=== PATIENT | female | born 1935 | race Caucasian/White ===

== ENCOUNTER 2022-10-22 18:10 | Inpatient (IN) | payer OTHER ==
[2022-10-22] MEDS ORDERED: SODIUM CHLORIDE 1,000 ML IV STA (18:53)
[2022-10-22 19:19] LABS: ALBUMIN 3.5 g/dl (3.4-5.0); BILIRUBIN,TOTAL 0.6 mg/dl (0.2-1); CALCIUM 8.4 mg/dl (8.5-10); CREATININE 0.7 mg/dl (0.55-1.3); POTASSIUM 3.8 mmol/L (3.5-5.1); TOT PROT 6.5 g/dl (6.4-8.2)
[2022-10-22 19:23] LABS: HEMATOCRIT 23.9 % (32.4-45.2); MCH 19.2 pg (25.7-33.7); MCHC 29.2 g/dl (32.0-36.0); MEAN CELL VOLUME 65.6 fl (80-96); MEAN PLT VOLUME 9.2 fl (7.5-11.1); PLATELET COUNT 422.3 10^3/uL (134-434); RBC 3.64 10^6/uL (3.60-5.2); RDW 19.7 % (11.6-15.6)
[2022-10-22 19:24] LABS: WHITE BLOOD COUNT 26.7 10^3/uL (4.0-10.8)
[2022-10-22 20:01] LABS: ANISOCYTOSIS 2+; MACROCYTOSIS 1+; OVALOCYTE 1+
[2022-10-22 20:04] LABS: HEMATOCRIT 21.2 % (32.4-45.2); MCHC 29.1 g/dl (32.0-36.0); MEAN CELL VOLUME 65.5 fl (80-96); MEAN PLT VOLUME 8.5 fl (7.5-11.1); PLATELET COUNT 358.3 10^3/uL (134-434); RBC 3.24 10^6/uL (3.60-5.2); RDW 19.7 % (11.6-15.6); WHITE BLOOD COUNT 24.8 10^3/uL (4.0-10.8)
[2022-10-22 20:06] LABS: PLATELET ESTIMATE ADEQUATE
[2022-10-22 20:10] LABS: HEMOGLOBIN 6.2 G/dL (10.7-15.3)
[2022-10-22 20:43] LABS: INR 1.44 (0.83-1.09); PROTHROMBIN TIME (PATIENT) 16.7 SEC (9.7-13.0)
[2022-10-22 22:30] LABS: EPITHELIAL CELLS FEW /hpf
[2022-10-22] MEDS ORDERED: cefTRIAXone SODIUM 1 GM VIAL ONE (23:19)
[2022-10-22] MEDS ORDERED: ACETAMINOPHEN 325 MG TABLET (FP) PO PRN (23:59)
[2022-10-22] MEDS ORDERED: DOCUSATE SODIUM 100 MG CAPSULE (FP) PO PRN (23:59)
[2022-10-23] MEDS: CHOLECALCIFEROL (VIT D3) 1,000 UNIT (25 MCG) TABLET PO SCH (09:07)
[2022-10-23 09:30] LABS: CALCIUM 8.3 mg/dl (8.5-10); CREATININE 0.6 mg/dl (0.55-1.3); MAGNESIUM 1.8 mg/dL (1.8-2.4); PHOSPHOROUS 2.5 mg/dl (2.5-4.9); POTASSIUM 3.9 mmol/L (3.5-5.1)
[2022-10-23] MEDS ORDERED: CITALOPRAM HYDROBROMIDE 20 MG TABLET PO SCH (10:00)
[2022-10-23 10:53] LABS: MCHC 27.4 g/dl (32.0-36.0); MEAN CELL VOLUME 62.5 fl (80-96); PLATELET COUNT 367 10^3/uL (134-434); RBC 3.35 M/mm3 (3.60-5.2); RDW 18.7 % (11.6-15.6); WHITE BLOOD COUNT 20.8 K/mm3 (4.0-10.0)
[2022-10-23 10:59] LABS: MCH 17.1 pg (25.7-33.7)
[2022-10-23] MEDS ORDERED: PANTOPRAZOLE SODIUM 40 MG VIAL IVPUSH SCH (11:30)
[2022-10-23] MEDS ORDERED: PIPERACILLIN/TAZOB 3.375 GM 3.375 GM in DEXTROSE 5%-WATER - 50 ML IVPB SCH (11:30)
[2022-10-23 11:46] LABS: ANISOCYTOSIS 2+; MACROCYTOSIS 0
[2022-10-23 11:48] LABS: HEMOGLOBIN 5.7 GM/dL (10.7-15.3)
[2022-10-23] MEDS: LACTATED RINGERS SOLUTION 1,000 ML/1,000 ML INFUS.BAG IV SCH (12:39)
[2022-10-23 17:57] LABS: HEMOGLOBIN 9.6 GM/dL (10.7-15.3); MCH 20.5 pg (25.7-33.7); MCHC 30.2 g/dl (32.0-36.0); MEAN CELL VOLUME 67.9 fl (80-96); MEAN PLT VOLUME 8.3 fl (7.5-11.1); PLATELET COUNT 365 10^3/uL (134-434); RBC 4.71 M/mm3 (3.60-5.2); RDW 22.2 % (11.6-15.6); WHITE BLOOD COUNT 21.9 K/mm3 (4.0-10.0)
[2022-10-23 18:21] LABS: IRON SERUM 298 ug/dL (50-175); TOTAL IRON BINDING CAPACITY 331 ug/dL (250-450)
[2022-10-23 18:57] LABS: ANISOCYTOSIS 3+; MACROCYTOSIS 0
[2022-10-23] MEDS: PIPERACILLIN/TAZOB 3.375 GM 3.375 GM in DEXTROSE 5%-WATER - 50 ML IVPB SCH (19:15)
[2022-10-23] MEDS ORDERED: CEFTRIAXONE 1 GM in DEXTROSE 5%-WATER - 50 ML IVPB SCH (22:00)
[2022-10-24] MEDS: PIPERACILLIN/TAZOB 3.375 GM 3.375 GM in DEXTROSE 5%-WATER - 50 ML IVPB SCH ×2 (01:02→09:32)
[2022-10-24 08:55] LABS: BASO % 0.4 % (0-2.0); EOS % 2.8 % (0-4.5); HEMATOCRIT 26.9 % (32.4-45.2); HEMOGLOBIN 8.2 GM/dL (10.7-15.3); LYMPH % 12.5 % (8-40); MCH 21.4 pg (25.7-33.7); MCHC 30.6 g/dl (32.0-36.0); MEAN CELL VOLUME 70.1 fl (80-96); MEAN PLT VOLUME 8.5 fl (7.5-11.1); MONO % 9.3 % (3.8-10.2); PLATELET COUNT 310 10^3/uL (134-434); RBC 3.84 M/mm3 (3.60-5.2); RDW 21.7 % (11.6-15.6); WHITE BLOOD COUNT 14.7 K/mm3 (4.0-10.0)
[2022-10-24] MEDS: PANTOPRAZOLE SODIUM 40 MG VIAL IVPUSH SCH (09:32)
[2022-10-24] MEDS: CHOLECALCIFEROL (VIT D3) 1,000 UNIT (25 MCG) TABLET PO SCH (09:32)
[2022-10-24 11:08] LABS: ALBUMIN 2.6 g/dl (3.4-5.0); BILIRUBIN,TOTAL 1.7 mg/dL (0.2-1); BLOOD UREA NITROGEN 13.7 mg/dL (7-18); CREATININE 0.8 mg/dL (0.55-1.3); POTASSIUM 3.7 mmol/L (3.5-5.1); TOT PROT 5.5 g/dl (6.4-8.2)
[2022-10-24] MEDS: CEFTRIAXONE 1 GM in DEXTROSE 5%-WATER - 50 ML IVPB SCH (12:24)
[2022-10-24] MEDS: LACTATED RINGERS SOLUTION 1,000 ML/1,000 ML INFUS.BAG IV SCH (15:31)
[2022-10-24] MEDS: POLYETHYLENE GLYCOL (HEALTHYLAX) 3350 17 GM PACKET PO SCH ×2 (15:31→21:53)
[2022-10-24] MEDS ORDERED: ACETAMINOPHEN 325 MG TABLET (FP) PO PRN (17:40)
[2022-10-25] MEDS: POLYETHYLENE GLYCOL (HEALTHYLAX) 3350 17 GM PACKET PO SCH ×3 (06:01→21:14)
[2022-10-25] MEDS: IRON SUCROSE INJECTION 200 MG in SODIUM CHLORIDE 90 ML IVPB SCH (06:33)
[2022-10-25 07:51] LABS: BASO % 0.6 % (0-2.0); EOS % 3.1 % (0-4.5); HEMATOCRIT 28.2 % (32.4-45.2); HEMOGLOBIN 8.6 GM/dL (10.7-15.3); LYMPH % 10.2 % (8-40); MCH 21.3 pg (25.7-33.7); MCHC 30.5 g/dl (32.0-36.0); MEAN CELL VOLUME 69.9 fl (80-96); MEAN PLT VOLUME 8.6 fl (7.5-11.1); MONO % 7.6 % (3.8-10.2); NEUT % 78.5 % (42.8-82.8); PLATELET COUNT 340 10^3/uL (134-434); RBC 4.04 M/mm3 (3.60-5.2); RDW 22.8 % (11.6-15.6); WHITE BLOOD COUNT 12.4 K/mm3 (4.0-10.0)
[2022-10-25 07:55] LABS: INR 1.24 (0.83-1.09); PROTHROMBIN TIME (PATIENT) 14.4 SEC (9.7-13.0)
[2022-10-25 08:20] LABS: POTASSIUM 3.4 mmol/L (3.5-5.1)
[2022-10-25 08:28] LABS: BLOOD UREA NITROGEN 9.4 mg/dL (7-18); CALCIUM 8.1 mg/dL (8.5-10.1)
[2022-10-25 08:29] LABS: ALBUMIN 2.6 g/dl (3.4-5.0)
[2022-10-25 08:31] LABS: CREATININE 0.5 mg/dL (0.55-1.3)
[2022-10-25 08:33] LABS: BILIRUBIN,TOTAL 0.7 mg/dL (0.2-1); TOT PROT 5.6 g/dl (6.4-8.2)
[2022-10-25] MEDS: POTASSIUM CHLORIDE ORAL LIQUID 20 MEQ/15 ML PO SCH ×2 (09:54→21:14)
[2022-10-25] MEDS: CHOLECALCIFEROL (VIT D3) 1,000 UNIT (25 MCG) TABLET PO SCH (09:55)
[2022-10-25] MEDS: PANTOPRAZOLE SODIUM 40 MG VIAL IVPUSH SCH (09:55)
[2022-10-25] MEDS: CEFTRIAXONE 1 GM in DEXTROSE 5%-WATER - 50 ML IVPB SCH (09:55)
[2022-10-25] MEDS: LACTATED RINGERS SOLUTION 1,000 ML/1,000 ML INFUS.BAG IV SCH (15:01)
[2022-10-25] MEDS ORDERED: PEG 3350/NA SULF BICARB CL/KCL 4000 ML SOLN.RECON PO ONE (16:30)
[2022-10-25] MEDS: CITALOPRAM HYDROBROMIDE 20 MG TABLET PO SCH (16:32)
[2022-10-25] MEDS ORDERED: BISACODYL 5 MG TABLET.DR (FP) PO ONE (20:00)
[2022-10-26] MEDS: POLYETHYLENE GLYCOL (HEALTHYLAX) 3350 17 GM PACKET PO SCH ×3 (06:31→21:20)
[2022-10-26] MEDS: IRON SUCROSE INJECTION 200 MG in SODIUM CHLORIDE 90 ML IVPB SCH (06:32)
[2022-10-26 08:13] LABS: BASO % 0.5 % (0-2.0); EOS % 3.6 % (0-4.5); HEMATOCRIT 30.1 % (32.4-45.2); HEMOGLOBIN 9.1 GM/dL (10.7-15.3); LYMPH % 10.8 % (8-40); MCH 21.4 pg (25.7-33.7); MCHC 30.2 g/dl (32.0-36.0); MEAN CELL VOLUME 70.8 fl (80-96); MEAN PLT VOLUME 8.5 fl (7.5-11.1); MONO % 10.1 % (3.8-10.2); PLATELET COUNT 367 10^3/uL (134-434); RBC 4.25 M/mm3 (3.60-5.2); RDW 23.6 % (11.6-15.6); WHITE BLOOD COUNT 11.4 K/mm3 (4.0-10.0)
[2022-10-26 08:21] LABS: INR 1.24 (0.83-1.09); PROTHROMBIN TIME (PATIENT) 14.4 SEC (9.7-13.0)
[2022-10-26 08:39] LABS: POTASSIUM 4.3 mmol/L (3.5-5.1)
[2022-10-26 08:47] LABS: ALBUMIN 2.8 g/dl (3.4-5.0); BLOOD UREA NITROGEN 4.6 mg/dL (7-18); CALCIUM 8.7 mg/dL (8.5-10.1)
[2022-10-26 08:50] LABS: BILIRUBIN,TOTAL 0.5 mg/dL (0.2-1)
[2022-10-26 08:51] LABS: CREATININE 0.6 mg/dL (0.55-1.3)
[2022-10-26] MEDS ORDERED: PHYTONADIONE 10 MG/1 ML AMP IVPB ONE (09:30)
[2022-10-26] MEDS: CEFTRIAXONE 1 GM in DEXTROSE 5%-WATER - 50 ML IVPB SCH (09:41)
[2022-10-26] MEDS: CITALOPRAM HYDROBROMIDE 20 MG TABLET PO SCH (09:41)
[2022-10-26] MEDS: CHOLECALCIFEROL (VIT D3) 1,000 UNIT (25 MCG) TABLET PO SCH (09:42)
[2022-10-26] MEDS: PANTOPRAZOLE SODIUM 40 MG VIAL IVPUSH SCH (09:42)
[2022-10-26 12:31] LABS: ANISOCYTOSIS 3+; MACROCYTOSIS 0
[2022-10-26 12:58] VITALS: BMI 24.0
[2022-10-27] MEDS: LACTATED RINGERS SOLUTION 1,000 ML/1,000 ML INFUS.BAG IV SCH ×2 (02:00→15:15)
[2022-10-27] MEDS: POLYETHYLENE GLYCOL (HEALTHYLAX) 3350 17 GM PACKET PO SCH ×3 (06:15→22:18)
[2022-10-27] MEDS: IRON SUCROSE INJECTION 200 MG in SODIUM CHLORIDE 90 ML IVPB SCH (06:43)
[2022-10-27 08:09] LABS: BASO % 0.7 % (0-2.0); HEMATOCRIT 30.4 % (32.4-45.2); HEMOGLOBIN 9.4 GM/dL (10.7-15.3); MCH 22.2 pg (25.7-33.7); MEAN CELL VOLUME 71.5 fl (80-96); MEAN PLT VOLUME 8.6 fl (7.5-11.1); MONO % 8.9 % (3.8-10.2); NEUT % 73.4 % (42.8-82.8); PLATELET COUNT 392 10^3/uL (134-434); RBC 4.26 M/mm3 (3.60-5.2); RDW 24.9 % (11.6-15.6); WHITE BLOOD COUNT 10.9 K/mm3 (4.0-10.0)
[2022-10-27 08:16] LABS: INR 1.24 (0.83-1.09); PROTHROMBIN TIME (PATIENT) 14.4 SEC (9.7-13.0)
[2022-10-27 08:20] LABS: POTASSIUM 3.9 mmol/L (3.5-5.1)
[2022-10-27 08:25] LABS: ALBUMIN 2.9 g/dl (3.4-5.0); BLOOD UREA NITROGEN 3.9 mg/dL (7-18); CALCIUM 8.6 mg/dL (8.5-10.1)
[2022-10-27 08:28] LABS: CREATININE 0.6 mg/dL (0.55-1.3)
[2022-10-27 08:30] LABS: BILIRUBIN,TOTAL 0.4 mg/dL (0.2-1); TOT PROT 6.1 g/dl (6.4-8.2)
[2022-10-27] MEDS: CITALOPRAM HYDROBROMIDE 20 MG TABLET PO SCH (10:57)
[2022-10-27] MEDS: CHOLECALCIFEROL (VIT D3) 1,000 UNIT (25 MCG) TABLET PO SCH (10:57)
[2022-10-27] MEDS: PANTOPRAZOLE SODIUM 40 MG VIAL IVPUSH SCH (10:58)
[2022-10-27] MEDS: CEFTRIAXONE 1 GM in DEXTROSE 5%-WATER - 50 ML IVPB SCH (11:01)
[2022-10-28] MEDS: IRON SUCROSE INJECTION 200 MG in SODIUM CHLORIDE 90 ML IVPB SCH (06:50)
[2022-10-28] MEDS: POLYETHYLENE GLYCOL (HEALTHYLAX) 3350 17 GM PACKET PO SCH ×2 (06:50→15:16)
[2022-10-28 07:40] LABS: INR 1.25 (0.83-1.09); PROTHROMBIN TIME (PATIENT) 14.5 SEC (9.7-13.0)
[2022-10-28 07:43] LABS: ACTIVATED PTT 26.5 SECONDS (25.2-36.5)
[2022-10-28 07:50] LABS: POTASSIUM 3.6 mmol/L (3.5-5.1)
[2022-10-28 07:55] LABS: HEMATOCRIT 29.3 % (32.4-45.2); HEMOGLOBIN 8.9 GM/dL (10.7-15.3); MCH 21.8 pg (25.7-33.7); MCHC 30.3 g/dl (32.0-36.0); MEAN CELL VOLUME 72.1 fl (80-96); MEAN PLT VOLUME 8.2 fl (7.5-11.1); PLATELET COUNT 335 10^3/uL (134-434); RBC 4.06 M/mm3 (3.60-5.2); RDW 24.9 % (11.6-15.6); WHITE BLOOD COUNT 12.3 K/mm3 (4.0-10.0)
[2022-10-28 08:01] LABS: CALCIUM 8.2 mg/dL (8.5-10.1)
[2022-10-28 08:02] LABS: ALBUMIN 2.6 g/dl (3.4-5.0); BLOOD UREA NITROGEN 5.5 mg/dL (7-18); MAGNESIUM 1.7 mg/dL (1.8-2.4)
[2022-10-28 08:05] LABS: CREATININE 0.5 mg/dL (0.55-1.3); PHOSPHOROUS 3.6 mg/dL (2.5-4.9)
[2022-10-28 08:06] LABS: BILIRUBIN,TOTAL 0.5 mg/dL (0.2-1); TOT PROT 5.6 g/dl (6.4-8.2)
[2022-10-28] MEDS: CEFTRIAXONE 1 GM in DEXTROSE 5%-WATER - 50 ML IVPB SCH (10:55)
[2022-10-28] MEDS: CHOLECALCIFEROL (VIT D3) 1,000 UNIT (25 MCG) TABLET PO SCH (10:55)
[2022-10-28] MEDS: CITALOPRAM HYDROBROMIDE 20 MG TABLET PO SCH (10:55)
[2022-10-28] MEDS: PANTOPRAZOLE SODIUM 40 MG VIAL IVPUSH SCH (10:55)
[2022-10-28] MEDS: LACTATED RINGERS SOLUTION 1,000 ML/1,000 ML INFUS.BAG IV SCH (10:56)
[2022-10-28] MEDS ORDERED: MAGNESIUM 2GM/50ML STERILE WATER IVPB IVPB ONE (14:45)
[2022-10-28 16:15] VITALS: BP 142/67; PULSE 86; RESP 20; TEMP 98.1
== END 2022-10-28 18:14 | disposition home or self-care (01) | DRG 872 ==
LOC: FER 18:10 → FM/S 10-23 00:29 → J4W 10-23 15:10 → OBSVTOIN 10-25 10:02
PROVIDERS: ADMIT Internal Medicine; ATTEND Internal Medicine
PROC: 0DB68ZX Excision of Stomach, Via Natural or Artificial Opening Endoscopic, Diagnostic (ICD-10-PCS; 2022-10-26)
PROC: 0DBK8ZX Excision of Ascending Colon, Via Natural or Artificial Opening Endoscopic, Diagnostic (ICD-10-PCS; 2022-10-26)
PROC: 0DB98ZX Excision of Duodenum, Via Natural or Artificial Opening Endoscopic, Diagnostic (ICD-10-PCS; principal; 2022-10-26 13:00)
DX: A41.9 Sepsis, unspecified organism (principal); N39.0 Urinary tract infection, site not specified; K92.2 Gastrointestinal hemorrhage, unspecified; D72.829 Elevated white blood cell count, unspecified; N83.201 Unspecified ovarian cyst, right side; D50.9 Iron deficiency anemia, unspecified; F32.A Depression, unspecified; K76.9 Liver disease, unspecified; E88.09 Other disorders of plasma-protein metabolism, not elsewhere classified; K64.8 Other hemorrhoids
CPT/HCPCS: 0241U-QW; 36415; 36430; 71045-TC-FY; 74176-TC; 74183-TC; 80048; 80053; 81003; 81015; 82272; 82378; 82728; 83540; 83550; 83615; 83735; 84100; 85025; 85027; 85045; 85610; 85730; 86850; 86900; 86901; 86922; 87040; 87045; 87046; 87086; 87186; 87205; 87324; 87449; 88305-TC; 93005; 97116-GP; 97161-GP; 99285-25; A9579; G0378; J1756; P9058

== ENCOUNTER 2022-11-04 15:48 | Inpatient (IN) | payer OTHER ==
[2022-11-04] MEDS ORDERED: SODIUM CHLORIDE 0.9% 500 ML INFUS.BAG IV ONE (17:45)
[2022-11-04 18:28] LABS: BASO % 0.4 % (0-2.0); EOS % 0.2 % (0-4.5); HEMATOCRIT 41.5 % (32.4-45.2); HEMOGLOBIN 12.3 GM/dL (10.7-15.3); LYMPH % 7.4 % (8-40); MCH 22.6 pg (25.7-33.7); MCHC 29.6 g/dl (32.0-36.0); MEAN CELL VOLUME 76.3 fl (80-96); MEAN PLT VOLUME 8.5 fl (7.5-11.1); MONO % 6.8 % (3.8-10.2); NEUT % 85.2 % (42.8-82.8); PLATELET COUNT 376 10^3/uL (134-434); RBC 5.45 M/mm3 (3.60-5.2); RDW 33.3 % (11.6-15.6); WHITE BLOOD COUNT 20.4 K/mm3 (4.0-10.0)
[2022-11-04 19:13] LABS: POTASSIUM 3.8 mmol/L (3.5-5.1)
[2022-11-04 19:14] LABS: CALCIUM 9.4 mg/dL (8.5-10.1)
[2022-11-04 19:15] LABS: BLOOD UREA NITROGEN 15.9 mg/dL (7-18)
[2022-11-04 19:18] LABS: CREATININE 0.9 mg/dL (0.55-1.3)
[2022-11-04 19:20] LABS: BILIRUBIN,TOTAL 0.6 mg/dL (0.2-1)
[2022-11-04 19:24] LABS: ALBUMIN 3.5 g/dl (3.4-5.0); TOT PROT 7.6 g/dl (6.4-8.2)
[2022-11-04 19:40] LABS: ANISOCYTOSIS 1+; MACROCYTOSIS 0; PLATELET ESTIMATE NORMAL
[2022-11-04 21:38] LABS: MAGNESIUM 2.2 mg/dL (1.8-2.4)
[2022-11-04 22:41] LABS: HEMATOCRIT 39.4 % (32.4-45.2); HEMOGLOBIN 11.8 GM/dL (10.7-15.3); MCH 23.1 pg (25.7-33.7); MEAN CELL VOLUME 76.9 fl (80-96); MEAN PLT VOLUME 9.1 fl (7.5-11.1); PLATELET COUNT 370 10^3/uL (134-434); RBC 5.12 M/mm3 (3.60-5.2); WHITE BLOOD COUNT 21.3 K/mm3 (4.0-10.0)
[2022-11-04 23:45] LABS: PLATELET ESTIMATE NORMAL
[2022-11-05 08:13] LABS: HEMATOCRIT 36.8 % (32.4-45.2); HEMOGLOBIN 11.1 GM/dL (10.7-15.3); MCH 23.6 pg (25.7-33.7); MCHC 30.1 g/dl (32.0-36.0); MEAN CELL VOLUME 78.5 fl (80-96); MEAN PLT VOLUME 9.5 fl (7.5-11.1); PLATELET COUNT 334 10^3/uL (134-434); RBC 4.69 M/mm3 (3.60-5.2); RDW 32.5 % (11.6-15.6); WHITE BLOOD COUNT 13.1 K/mm3 (4.0-10.0)
[2022-11-05] MEDS ORDERED: SODIUM CHLORIDE 1,000 ML IV SCH (08:15)
[2022-11-05 09:16] LABS: POTASSIUM 3.9 mmol/L (3.5-5.1)
[2022-11-05 09:19] LABS: CALCIUM 8.8 mg/dL (8.5-10.1)
[2022-11-05 09:21] LABS: BLOOD UREA NITROGEN 14.6 mg/dL (7-18)
[2022-11-05 09:24] LABS: CREATININE 0.7 mg/dL (0.55-1.3)
[2022-11-05 09:25] LABS: BILIRUBIN,TOTAL 0.5 mg/dL (0.2-1); TOT PROT 6.4 g/dl (6.4-8.2)
[2022-11-05] MEDS ORDERED: metroNIDAZOLE 500 MG PREMIXED 250 MG/50 ML MG IVPB SCH (10:15)
[2022-11-05] MEDS ORDERED: PANTOPRAZOLE SODIUM 40 MG in SODIUM CHLORIDE 100 ML IVPB SCH (10:30)
[2022-11-05] MEDS ORDERED: PANTOPRAZOLE SODIUM 40 MG VIAL IVPUSH SCH (11:00)
[2022-11-05] MEDS: D5-NS + 20 MEQ KCL - 20 MEQ/1,000 ML INFUS.BAG IV SCH (11:11)
[2022-11-05] MEDS: CITALOPRAM HYDROBROMIDE 10 MG TABLET PO SCH (11:12)
[2022-11-05] MEDS: VANCOMYCIN ORAL SOLUTION 125 MG/2.5 ML PO SCH (19:15)
[2022-11-06] MEDS: VANCOMYCIN ORAL SOLUTION 125 MG/2.5 ML PO SCH ×4 (00:56→18:57)
[2022-11-06 08:50] LABS: BASO % 0.8 % (0-2.0); EOS % 2.8 % (0-4.5); HEMATOCRIT 35.1 % (32.4-45.2); HEMOGLOBIN 10.6 GM/dL (10.7-15.3); MCH 24.1 pg (25.7-33.7); MCHC 30.4 g/dl (32.0-36.0); MEAN CELL VOLUME 79.4 fl (80-96); MEAN PLT VOLUME 9.6 fl (7.5-11.1); MONO % 10.2 % (3.8-10.2); NEUT % 76.2 % (42.8-82.8); PLATELET COUNT 319 10^3/uL (134-434); RBC 4.41 M/mm3 (3.60-5.2); RDW 32.1 % (11.6-15.6); WHITE BLOOD COUNT 8.8 K/mm3 (4.0-10.0)
[2022-11-06 08:59] LABS: POTASSIUM 3.9 mmol/L (3.5-5.1)
[2022-11-06] MEDS: LACTOBACILLUS ACIDOPHILUS 1 TABLET PO SCH (09:26)
[2022-11-06] MEDS: CITALOPRAM HYDROBROMIDE 10 MG TABLET PO SCH (09:26)
[2022-11-06] MEDS: PANTOPRAZOLE 40 MG TABLET PO SCH (09:26)
[2022-11-06] MEDS: ENOXAPARIN NA (PORCINE) 30 MG/0.3 ML DISP.SYRIN SQ SCH (09:27)
[2022-11-06 09:28] LABS: BLOOD UREA NITROGEN 11.4 mg/dL (7-18); CALCIUM 8.8 mg/dL (8.5-10.1); MAGNESIUM 2.2 mg/dL (1.8-2.4)
[2022-11-06 09:29] LABS: ALBUMIN 2.9 g/dl (3.4-5.0)
[2022-11-06 09:31] LABS: CREATININE 0.6 mg/dL (0.55-1.3); PHOSPHOROUS 3.3 mg/dL (2.5-4.9)
[2022-11-06 09:33] LABS: BILIRUBIN,TOTAL 0.6 mg/dL (0.2-1)
[2022-11-06 11:51] VITALS: BMI 23.4
[2022-11-06] MEDS: D5-NS + 20 MEQ KCL - 20 MEQ/1,000 ML INFUS.BAG IV SCH (14:09)
[2022-11-06] MEDS: BANATROL PLUS POWDER PACKET PO SCH ×2 (14:10→21:29)
[2022-11-06 22:18] LABS: EPI CELLS 12 /uL (0-25.1); HYALINE CASTS 2 /uL (0-3.1); URINE APPEARANCE CLEAR; URINE BACTERIA 14 /uL (0-1359); URINE BILIRUBIN NEGATIVE (NEGATIVE); URINE COLOR YELLOW; URINE GLUCOSE (UA) NEGATIVE (NEGATIVE); URINE KETONE TRACE (NEGATIVE); URINE LEUK ESTERASE TRACE (NEGATIVE); URINE NITRITE NEGATIVE (NEGATIVE); URINE PROTEIN TRACE (NEGATIVE); URINE RBC 34 /uL (0-23.9); URINE UROBILINOGEN 0.2 mg/dL (0.2-1.0); URINE WBC 52 /uL (0-25.8)
[2022-11-07] MEDS: VANCOMYCIN ORAL SOLUTION 125 MG/2.5 ML PO SCH ×4 (00:50→17:45)
[2022-11-07] MEDS: BANATROL PLUS POWDER PACKET PO SCH ×3 (05:43→23:15)
[2022-11-07 09:05] LABS: BASO % 0.8 % (0-2.0); EOS % 2.6 % (0-4.5); HEMATOCRIT 35.6 % (32.4-45.2); LYMPH % 15.5 % (8-40); MCH 23.9 pg (25.7-33.7); MCHC 30.9 g/dl (32.0-36.0); MEAN CELL VOLUME 77.2 fl (80-96); MEAN PLT VOLUME 9.2 fl (7.5-11.1); MONO % 11.2 % (3.8-10.2); NEUT % 69.9 % (42.8-82.8); PLATELET COUNT 354 10^3/uL (134-434); RBC 4.61 M/mm3 (3.60-5.2); RDW 32.3 % (11.6-15.6); WHITE BLOOD COUNT 8.3 K/mm3 (4.0-10.0)
[2022-11-07 09:23] LABS: POTASSIUM 4.3 mmol/L (3.5-5.1)
[2022-11-07 09:26] LABS: ALBUMIN 3.1 g/dl (3.4-5.0); BLOOD UREA NITROGEN 5.3 mg/dL (7-18); CALCIUM 8.9 mg/dL (8.5-10.1); MAGNESIUM 1.9 mg/dL (1.8-2.4)
[2022-11-07] MEDS: LACTOBACILLUS ACIDOPHILUS 1 TABLET PO SCH (09:26)
[2022-11-07] MEDS: ENOXAPARIN NA (PORCINE) 30 MG/0.3 ML DISP.SYRIN SQ SCH (09:26)
[2022-11-07] MEDS: CITALOPRAM HYDROBROMIDE 10 MG TABLET PO SCH (09:26)
[2022-11-07] MEDS: PANTOPRAZOLE 40 MG TABLET PO SCH (09:26)
[2022-11-07 09:30] LABS: CREATININE 0.6 mg/dL (0.55-1.3); TOT PROT 6.4 g/dl (6.4-8.2)
[2022-11-07 09:31] LABS: BILIRUBIN,TOTAL 0.3 mg/dL (0.2-1)
[2022-11-07] MEDS: D5-NS + 20 MEQ KCL - 20 MEQ/1,000 ML INFUS.BAG IV SCH (15:04)
[2022-11-08] MEDS: VANCOMYCIN ORAL SOLUTION 125 MG/2.5 ML PO SCH ×4 (01:39→17:24)
[2022-11-08] MEDS: D5-NS + 20 MEQ KCL - 20 MEQ/1,000 ML INFUS.BAG IV SCH (03:16)
[2022-11-08] MEDS: BANATROL PLUS POWDER PACKET PO SCH ×3 (06:34→21:15)
[2022-11-08 08:27] LABS: EOS % 1.8 % (0-4.5); HEMATOCRIT 35.7 % (32.4-45.2); HEMOGLOBIN 10.8 GM/dL (10.7-15.3); LYMPH % 14.5 % (8-40); MCH 23.8 pg (25.7-33.7); MCHC 30.4 g/dl (32.0-36.0); MEAN CELL VOLUME 78.2 fl (80-96); MEAN PLT VOLUME 9.8 fl (7.5-11.1); MONO % 12.1 % (3.8-10.2); NEUT % 70.6 % (42.8-82.8); PLATELET COUNT 397 10^3/uL (134-434); RBC 4.56 M/mm3 (3.60-5.2); RDW 32.4 % (11.6-15.6)
[2022-11-08 08:52] LABS: POTASSIUM 4.1 mmol/L (3.5-5.1)
[2022-11-08 08:55] LABS: CALCIUM 8.8 mg/dL (8.5-10.1)
[2022-11-08 08:56] LABS: BLOOD UREA NITROGEN 3.6 mg/dL (7-18); MAGNESIUM 1.8 mg/dL (1.8-2.4)
[2022-11-08 08:58] LABS: PHOSPHOROUS 2.9 mg/dL (2.5-4.9)
[2022-11-08 08:59] LABS: CREATININE 0.6 mg/dL (0.55-1.3)
[2022-11-08 09:00] LABS: BILIRUBIN,TOTAL 0.6 mg/dL (0.2-1); TOT PROT 6.2 g/dl (6.4-8.2)
[2022-11-08] MEDS: ENOXAPARIN NA (PORCINE) 30 MG/0.3 ML DISP.SYRIN SQ SCH (09:52)
[2022-11-08] MEDS: CITALOPRAM HYDROBROMIDE 10 MG TABLET PO SCH (09:52)
[2022-11-08] MEDS: LACTOBACILLUS ACIDOPHILUS 1 TABLET PO SCH (09:52)
[2022-11-08 15:33] VITALS: RESP 18
[2022-11-09] MEDS: VANCOMYCIN ORAL SOLUTION 125 MG/2.5 ML PO SCH ×3 (01:26→12:22)
[2022-11-09] MEDS: BANATROL PLUS POWDER PACKET PO SCH (05:26)
[2022-11-09 07:41] VITALS: BP 130/79; PULSE 80; TEMP 98.2
[2022-11-09] MEDS: CITALOPRAM HYDROBROMIDE 10 MG TABLET PO SCH (09:46)
[2022-11-09] MEDS: ENOXAPARIN NA (PORCINE) 30 MG/0.3 ML DISP.SYRIN SQ SCH (09:46)
[2022-11-09] MEDS: LACTOBACILLUS ACIDOPHILUS 1 TABLET PO SCH (09:46)
[2022-11-09 10:10] LABS: POTASSIUM 4.3 mmol/L (3.5-5.1)
[2022-11-09 10:27] LABS: BASO % 0.9 % (0-2.0); EOS % 1.8 % (0-4.5); HEMATOCRIT 37.5 % (32.4-45.2); HEMOGLOBIN 11.2 GM/dL (10.7-15.3); LYMPH % 16.9 % (8-40); MCH 23.3 pg (25.7-33.7); MCHC 29.8 g/dl (32.0-36.0); MEAN CELL VOLUME 78.2 fl (80-96); MEAN PLT VOLUME 9.7 fl (7.5-11.1); MONO % 9.4 % (3.8-10.2); PLATELET COUNT 381 10^3/uL (134-434); RBC 4.79 M/mm3 (3.60-5.2); RDW 32.5 % (11.6-15.6); WHITE BLOOD COUNT 9.3 K/mm3 (4.0-10.0)
[2022-11-09 10:28] LABS: BLOOD UREA NITROGEN 4.1 mg/dL (7-18); CALCIUM 8.9 mg/dL (8.5-10.1); MAGNESIUM 1.9 mg/dL (1.8-2.4)
[2022-11-09 10:32] LABS: CREATININE 0.6 mg/dL (0.55-1.3); PHOSPHOROUS 3.4 mg/dL (2.5-4.9)
[2022-11-09 10:34] LABS: BILIRUBIN,TOTAL 0.6 mg/dL (0.2-1); TOT PROT 6.2 g/dl (6.4-8.2)
[2022-11-10 02:08] LABS: STOOL CHLORIDE 69 mmol/L (.); STOOL POTASSIUM 37 mmol/L (.); STOOL SODIUM 101 mmol/L (.)
== END 2022-11-09 14:00 | disposition home health service (06) | DRG 372 ==
LOC: JER 15:48 → JERBED 23:14 → J8W 11-05 01:43
PROVIDERS: ADMIT Internal Medicine; ATTEND Nurse Practitioner Acute Care
DX: A04.72 Enterocolitis due to Clostridium difficile, not specified as recurrent (principal); C18.2 Malignant neoplasm of ascending colon; C78.7 Secondary malignant neoplasm of liver and intrahepatic bile duct; R93.5 Abnormal findings on diagnostic imaging of other abdominal regions, including retroperitoneum
CPT/HCPCS: 0241U-QW; 36415; 74177-TC; 80053; 81003; 82438; 83735; 84100; 84302; 84999; 85025; 85027; 87040; 87045; 87046; 87086; 87324; 87425; 87449; 87493; 87798; 93005; 93010; 97116-GP; 97161-GP; 99285-25; Q9967